=== PATIENT | female | born 1955 | race Caucasian/White ===

== ENCOUNTER → 2018-03-17 | Outpatient (REF) | payer BC ==
[2018-03-21 15:00] LABS: HPV HYBRID CAPTURE II Negative (Negative)
== END ==
LOC: M SFHCWAGY 13:33
DX: Z01.411 Encounter for gynecological examination (general) (routine) with abnormal findings (principal); Z11.51 Encounter for screening for human papillomavirus (HPV); N95.2 Postmenopausal atrophic vaginitis
CPT/HCPCS: G0123

== ENCOUNTER → 2018-03-17 | Outpatient (CLI) | payer BC | LOC: M WHC 13:00 | DX: Z12.31 Encounter for screening mammogram for malignant neoplasm of breast (principal) | CPT/HCPCS: 77067 ==

== ENCOUNTER 2019-06-10 12:59 | Emergency (ER) | payer BC, MEDICARE ==
[~2019-06-10] VITALS: Ht 175.3 cm; Wt 97.4 kg
[2019-06-10 13:47] LABS: BASO # 0.1 10^3/uL (0.0-0.2); BASO % 0.8 % (0.0-1.0); EOS # 0.3 10^3/uL (0.0-0.5); HEMATOCRIT 43.8 % (36.0-47.0); LYMPH # 2.5 10^3/uL (1.5-5.0); LYMPH % 32.8 % (24.0-44.0); MEAN CORPUSCULAR HEMOGLOBIN 33.2 pg (27.0-33.0); MEAN CORPUSCULAR HGB CONC 34.2 g/dl (32.0-36.5); MEAN CORPUSCULAR VOLUME 96.9 fl (80.0-96.0); MONO # 0.9 10^3/uL (0.0-0.8); MONO % 11.2 % (0.0-5.0); NEUTROPHILS # 3.9 10^3/uL (1.5-8.5); NEUTROPHILS % 50.8 % (36.0-66.0); PLATELET COUNT, AUTOMATED 186 10^3/uL (150-450); RED BLOOD COUNT 4.52 10^6/uL (4.00-5.40); WHITE BLOOD COUNT 7.7 10^3/uL (4.0-10.0)
[2019-06-10] MEDS ORDERED: METF10004 (13:49)
[2019-06-10] MEDS ORDERED: INVO1TAB4 (13:49)
[2019-06-10] MEDS ORDERED: OMEG1CAP16 PO (13:49)
[2019-06-10] MEDS ORDERED: CIDA500T2 PO (13:49)
[2019-06-10] MEDS ORDERED: COQ-30CA2 PO (13:49)
[2019-06-10] MEDS ORDERED: LOSA50TA88 (13:49)
[2019-06-10] MEDS ORDERED: ATOR1TAB21 (13:49)
[2019-06-10] MEDS ORDERED: BIOT1CAP2 PO (13:49)
[2019-06-10] MEDS ORDERED: MORPHINE 2 MG/ML 1ML SYRINGE (J2270) IV PRN (14:15)
[2019-06-10 14:21] LABS: ALBUMIN 4.1 GM/DL (3.2-5.2); ALT/SGPT 29 U/L (12-78); BILIRUBIN,DIRECT 0.2 MG/DL (0.0-0.2); BILIRUBIN,TOTAL 0.6 MG/DL (0.2-1.0); BLOOD UREA NITROGEN 17 MG/DL (7-18); C REACTIVE PROTEIN QUANTITATIV < 0.30 MG/DL (0.00-0.30); CALCIUM LEVEL 9.8 MG/DL (8.8-10.2); CARBON DIOXIDE LEVEL 28 MEQ/L (21-32); CHLORIDE LEVEL 106 MEQ/L (98-107); CK-MB VALUE MASS 1.2 NG/ML (<3.6); CPK CREATINE PHOSPHOKINASE 66 U/L (26-192); CREATININE FOR GFR 0.87 MG/DL (0.55-1.30); GLOMERULAR FILTRATION RATE > 60.0 (>45); GLUCOSE, FASTING 111 MG/DL (70-100); MB/CK RELATIVE INDEX 1.82 (< OR =4); POTASSIUM SERUM 4.1 MEQ/L (3.5-5.1); SODIUM LEVEL 141 MEQ/L (136-145); TROPONIN I < 0.02 NG/ML (< 0.10)
[2019-06-10 14:46] LABS: ERYTHROCYTE SEDIMENTATION RATE 11 mm/hr (0-30)
[2019-06-10] MEDS ORDERED: KETOROLAC 30 MG/ML VIAL (J1885) IV ONE (15:00)
[2019-06-10 16:01] LABS: APPEARANCE, URINE CLEAR (CLEAR); BACTERIA, URINE AUTO 1+ (NEGATIVE); BILIRUBIN, URINE AUTO NEGATIVE (NEGATIVE); BLOOD, URINE BLOOD NEGATIVE (NEGATIVE); COLOR, URINE YELLOW (YELLOW); GLUCOSE, URINE (UA) AUTO 3+ mg/dL (NEGATIVE); KETONE, URINE AUTO TRACE mg/dL (NEGATIVE); LEUKOCYTE ESTERASE, URINE AUTO NEGATIVE (NEGATIVE); MUCUS, URINE SMALL (NEGATIVE); NITRITE, URINE AUTO NEGATIVE (NEGATIVE); PROTEIN, URINE AUTO NEGATIVE (NEGATIVE); RBC, URINE AUTO 3 /HPF (0-3); SPECIFIC GRAVITY URINE AUTO 1.038 (1.002-1.035); SQUAMOUS EPITHELIAL CELL UR AU 1 /HPF (0-6); UROBILINOGEN, URINE AUTO 0.2 mg/dL (0.0-2.0); WBC, URINE AUTO 2 /HPF (0-3)
[2019-06-10] MEDS ORDERED: METOCLOPRAMIDE INJ 10MG/2ML VIAL (J2765) IV ONE (16:15)
[2019-06-10] MEDS ORDERED: REGL5TAB2 PO (17:15)
[2019-06-10] MEDS ORDERED: KETO10TAB PO (17:15)
[2019-06-10 18:23] VITALS: BP 128/62
--- NOTE | 2019-06-11 07:19 | REP ---
CT BRAIN WITHOUT CONTRAST: 06/10/2019. Comparison: MRI brain 10/29/2015, CT 10/22/2015. Clinical history: Severe headache. Findings: Soft-tissue and bone windows are reviewed for each slice level. Lateral ventricles are midline and symmetric and without dilatation or displacement. Third and fourth ventricles were also unremarkable. I see no atrophy. Very minor heterogeneous low attenuation white matter change present suggesting small vessel ischemic disease. I see no acute infarct, intracranial hemorrhage, mass, mass effect or edema. Basal cisterns were intact. There is no extra-axial fluid collection. No old infarct. Brainstem and cerebellum grossly intact. Mastoids were intact. A few ethmoid air cells posteriorly shows some mucosal thickening but sinuses included were otherwise unremarkable. The skull base and calvarium are without fracture or focal lesion. Impression: 1. Negative CT brain for mass, edema, intracranial hemorrhage, acute infarct or extra-axial fluid. 2. Mild chronic small vessel white matter ischemic changes. No significant atrophy. 3. Skull base and calvarium unremarkable. Minor posterior right ethmoid air cell mucosal thickening with the remainder of the visualized sinuses and mastoids clear. Electronically Signed by Kuldip Gayle MD 06/11/2019 08:23 A
--- NOTE | 2019-06-11 07:27 | REP ---
AP PORTABLE CHEST: 06/10/2019. Comparison: 10/22/2015 two-view. Clinical history: Altered mental status. Findings: Lungs are adequately inflated. There is no effusion, lateral pleural thickening or apical scar. No infiltrate or mass. The heart, mediastinal and hilar contours are unchanged. The aorta and airway intact. Degenerative changes in the spine. No free air. Impression: 1. No acute cardiopulmonary change. Stable from 2015. Electronically Signed by Kuldip Gayle MD 06/11/2019 08:31 A
--- NOTE | 2019-06-11 08:26 | ECGEPIP ---
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
== END 2019-06-10 18:24 | disposition home or self-care (01) ==
LOC: M ED 12:59
DX: R51 Headache (principal); I10 Essential (primary) hypertension; E11.9 Type 2 diabetes mellitus without complications; E78.5 Hyperlipidemia, unspecified; Z79.84 Long term (current) use of oral hypoglycemic drugs; Z79.899 Other long term (current) drug therapy
CPT/HCPCS: 70450; 71045; 80048; 80076; 81001; 82550; 82553; 84443; 84484; 85025; 85652; 86140; 93005; 93041; 96374; 96375; 99285; J1885; J2765

== ENCOUNTER → 2019-08-21 | Outpatient (REF) | payer MEDICARE, OTHER ==
[~2019-08-21] MED LIST: ATOR1TAB21 PO; BIOT1CAP2 PO; CALC600T60 PO; CIDA500T2 PO; CO Q100C PO; COQ-30CA2 PO; GNP250TA9 PO; INVO100T PO; INVO1TAB4; KETO10TAB PO; LOSA50TA88 PO; METF10004 PO; OMEG1CAP16 PO; PROBCAP14 PO; REGL5TAB2 PO; ST J300C2 PO
== END ==
LOC: M LAB REF 18:57
PROVIDERS: ATTEND Dermatology
DX: D04.72 Carcinoma in situ of skin of left lower limb, including hip (principal)
CPT/HCPCS: 11102; 88305; G0463

== ENCOUNTER → 2019-09-19 | Outpatient (REF) | payer MEDICARE, OTHER | LOC: M LAB REF 09:21 | PROVIDERS: ATTEND Dermatology | DX: D23.72 Other benign neoplasm of skin of left lower limb, including hip (principal) ==

== ENCOUNTER 2019-10-04 06:54 | Day surgery (SDC) | payer MEDICARE ==
[~2019-10-04] VITALS: Ht 175.3 cm; Wt 94.8 kg
[2019-10-04] MEDS ORDERED: NS 1,000 ML IV ONE (07:00)
[2019-10-04] MEDS ORDERED: LIDOCAINE 2% INJ 100 MG/5 ML SDV (FOR ANES.) As Ordered ONE (07:05)
[2019-10-04] MEDS ORDERED: propofoL 200 MG/20 ML VIAL As Ordered ONE (07:05)
--- NOTE | 2019-10-04 08:18 | ROOR ---
Patient Name: Luh Viveros Procedure Date: 10/04/2019 7:53 AM Date of : 1955 Age: 63 Room: [facility] Gender: Female Note Status: Finalized Procedure: Colonoscopy Indications: Screening for colorectal malignant neoplasm Providers: Jonathan QIU MD Referring MD: TALON BLACKBURN MD Requesting Provider: Medicines: Monitored Anesthesia Care Complications: No immediate complications. Procedure: Pre-Anesthesia Assessment: - The heart rate, respiratory rate, oxygen saturations, blood pressure, adequacy of pulmonary ventilation, and response to care were monitored throughout the procedure. The Colonoscope was introduced through the anus and advanced to the cecum, identified by appendiceal orifice and ileocecal valve. The colonoscopy was performed without difficulty. The patient tolerated the procedure well. The quality of the bowel preparation was good. Findings: The perianal and digital rectal examinations were normal. Mild sigmoid diverticulosis and small internal hemorrhoids. Retroflexion in the right colon was performed. The entire examined colon appeared normal on direct and retroflexion views. Impression: - Mild sigmoid diverticulosis and small internal hemorrhoids. - The entire examined colon is normal on direct and retroflexion views. - No specimens collected. Recommendation: - Repeat colonoscopy in 10 years for screening purposes. Jonathan Qiu MD Jonathan QIU MD 10/04/2019 8:18:11 AM Electronically signed by Jonathan QIU MD Number of Addenda: 0 Note Initiated On: 10/04/2019 7:53 AM Estimated Blood Loss: Estimated blood loss: none.
[2019-10-04 08:35] VITALS: BP 162/78
== END 2019-10-04 08:46 | disposition home or self-care (01) ==
LOC: M OPP 06:54
PROVIDERS: ATTEND Internal Medicine Gastroenterology
DX: Z12.11 Encounter for screening for malignant neoplasm of colon (principal); K64.8 Other hemorrhoids; K57.30 Diverticulosis of large intestine without perforation or abscess without bleeding; Z79.84 Long term (current) use of oral hypoglycemic drugs; Z79.899 Other long term (current) drug therapy

== ENCOUNTER → 2020-01-02 | Outpatient (REF) | payer MEDICARE | LOC: M LAB REF 17:08 | PROVIDERS: ATTEND Dermatology | DX: T81.30XA Disruption of wound, unspecified, initial encounter (principal) | CPT/HCPCS: 87070; 87077; 87186; 97597; G0463 ==

== ENCOUNTER → 2020-07-29 | Outpatient (CLI) | payer MEDICARE ==
--- NOTE | 2020-07-29 10:59 | REPMRS ---
Patient History The patient states she had a clinical breast exam in 08/01 No known family history of cancer. Benign cyst aspiration of the right breast. 3D TOMOSYNTHESIS WAS PERFORMED. The Andi Peter lifetime risk for breast cancer is 9.0%. Volpara breast density b. Digital Woman Screen Mammo: July 29, 2020 - Exam #: [id number] Bilateral CC and MLO view(s) were taken. Technologist: Evonne Quinones, Technologist Prior study comparison: March 17, 2018, bilateral digital woman screen mammo performed at [facility] [place] [facility]. July 03, 2015, digital woman screen mammo performed at [facility]. FINDINGS: There are scattered fibroglandular densities. There has been no change in the appearance of the mammogram from the prior studies. There is a mild amount of residual fibroglandular tissue which is fairly symmetric. There is no interval development of dominant mass, architectural distortion, or clustered microcalcification suggestive of malignancy. Assessment: BI-RADS/ACR category 1 mammogram. Negative Mammogram. Recommendation Routine screening mammogram in 1 year (for women over age 40). This mammogram was interpreted with the aid of an FDA-approved computer-aided dectection system. Electronically Signed By: Tucker Lynn MD 07/29/20 0338
== END ==
LOC: M WHC 09:33
PROVIDERS: ATTEND Nurse Practitioner Family
DX: Z01.419 Encounter for gynecological examination (general) (routine) without abnormal findings (principal); Z12.31 Encounter for screening mammogram for malignant neoplasm of breast; Z86.018 Personal history of other benign neoplasm
CPT/HCPCS: 77063; 77067; G0101

== ENCOUNTER 2022-05-31 21:46 | Emergency (ER) | payer MEDICARE ==
[~2022-05-31] VITALS: Ht 176.5 cm; Wt 96.4 kg
[~2022-05-31 21:46] MED LIST changes: +LOSA50TA28 PO; -LOSA50TA88 PO
[2022-05-31 21:47] VITALS: BP 189/77
== END 2022-05-31 23:52 | disposition left against medical advice (07) ==
LOC: M ED 21:46
DX: Z53.29 Procedure and treatment not carried out because of patient's decision for other reasons (principal)

== ENCOUNTER → 2023-04-09 | Outpatient (CLI) | payer MEDICARE | LOC: M RAD 11:28 | PROVIDERS: ATTEND Student in an Organized Health Care Education/Training Program | DX: M79.601 Pain in right arm (principal) ==

== ENCOUNTER → 2023-08-24 | Outpatient (REF) | payer MEDICARE | LOC: M SFHCDERM 14:45 | PROVIDERS: ATTEND Physician Assistant | DX: D04.4 Carcinoma in situ of skin of scalp and neck (principal) ==

== ENCOUNTER → 2025-07-10 | Outpatient (CLI) | payer MEDICARE ==
[~2025-07-10] MED LIST changes: +ISOVUE-370 76% 100 ML VIAL ONE
== END ==
LOC: M PLAIMG 14:00
PROVIDERS: ATTEND Internal Medicine
DX: R10.9 Unspecified abdominal pain (principal); K42.9 Umbilical hernia without obstruction or gangrene
CPT/HCPCS: 74177; Q9967

== ENCOUNTER → 2025-08-16 | Outpatient (CLI) | payer MEDICARE ==
[~2025-08-16] MED LIST changes: -ISOVUE-370 76% 100 ML VIAL ONE; -ST J300C2 PO; +ST.300CA PO
[2025-08-22 07:52] LABS: IMMUNOGLOBULIN A CELIAC 391 mg/dL (70-320); t-TRANSGLUTAMINASE(tTG) IgA < 1.0 U/mL (<15.0); t-TRANSGLUTAMINASE(tTG) IgG < 1.0 U/mL (<15.0)
== END ==
LOC: M LAB 09:59
PROVIDERS: ATTEND Nurse Practitioner Family
DX: R19.5 Other fecal abnormalities (principal); R19.7 Diarrhea, unspecified